=== PATIENT | female | born 1990 | race Caucasian/White ===

== ENCOUNTER 2018-02-22 19:50 | Inpatient (IN) | payer MEDICAID, OTHER ==
[2018-02-22 21:06] VITALS: BMI 25.4
[2018-02-22] MEDS ORDERED: Lactated Ringer's 1,000 ML IV SCH (21:30)
--- NOTE | 2018-02-22 21:35 | OBHP ---
Datetime: 02/22/2018 21:29 IP Adm Impression: Term, intrauterine IP Admit Plan: Admit to unit Admit Comment, IP Provider: 27 y/o @ 38 wks GA c/o ctx pain eery 5 min increasin intesnity and frequency, denies any LOF, vb, +FM. pt states was referred also by her PMD today becuase she had an U S today with grwoth of weight from 35% to 10% and was told IUGR Ante PNC uncomplicated as per pt OB: P0 BUTTON SEWER HAND: denies hx of abnomrla pap, fbroids, ovairan cyst, STI PMH: Denies PSH: Tonceillectomy FHX non contribuory MEDS :PNV NKDA SHX: negative etoh/tobac/drugs A/P 27 y/o @ 38 wks GA IOL for IUGR -admit to L+D -npo, ivf -admissin labos -cont toco and efm -pain mangment -iol as per pMD Pelvic Type - PN: Adequate Extremities - PN: Normal Abdomen - PN: Normal Back - PN: Normal Breast - PN: Normal Lungs - PN: Normal Heart - PN: Normal Thyroid - PN: Normal Neurologic - PN: Normal HEENT - PN: Normal General - PN: Normal Presentation-Admit: Vertex IP Fetus A Comments: 2 variable decerlreatin with spontnaous return t baseline at beginning of efm FHR - Baseline A Provider: 125 Membranes, Provider: Intact Contraction Comments Provider: q 3 min Gestation - Est Wks by US: 38.0 EGA AdmitDate IP: 38.0 Vital Signs Provider: Reviewed; Within Normal Limits IP Chief Complaint: Other NICHD Variability Prov Fetus A: Moderate 6-25bpm FHR Category Provider Fetus A: Category I Dilatation, Provider: 0 Effacement, Provider: 0 Station, Provider: -3 Genitourinary Exam: Normal DTRs - PN: Normal
[2018-02-22 22:12] LABS: BASO % 0.2 % (0.0-2.0); EOS # 0.3 K/uL (0.0-0.7); EOS % 2.4 % (0.0-4.0); HEMOGLOBIN 11.3 g/dL (11.0-16.0); LYMPH # 2.9 K/uL (1.0-4.3); LYMPH % 21.1 % (20.0-40.0); MEAN CELL VOLUME 76.4 fL (81.0-99.0); MEAN CORPUSCULAR HEMOGLOBIN 24.2 pg (27.0-31.0); MEAN CORPUSCULAR HGB CONC 31.6 g/dL (33.0-37.0); MEAN PLATELET VOLUME 10.2 fL (7.2-11.7); MONO # 1.2 K/uL (0.0-0.8); MONO % 8.7 % (0.0-10.0); NEUT # 9.3 K/uL (1.8-7.0); NEUT % 67.6 % (50.0-75.0); RBC 4.68 Mil/uL (3.80-5.20); WHITE BLOOD COUNT 13.8 K/uL (4.8-10.8)
[2018-02-22 22:24] LABS: SQUAMOUS EPITHIAL < 1 /hpf (0-5); URINE BACTERIA RARE (<OCC)
[2018-02-22 22:25] LABS: URINE BILIRUBIN NEGATIVE (NEGATIVE); URINE BLOOD NEGATIVE (NEGATIVE); URINE CLARITY Clear (Clear); URINE COLOR YELLOW (YELLOW); URINE GLUCOSE (UA) NEGATIVE (Normal); URINE LEUKOCYTE ESTERASE NEGATIVE Leu/uL (Negative); URINE PROTEIN NEGATIVE (NEGATIVE); URINE UROBILINOGEN Normal mg/dL (0.2-1.0)
[2018-02-22 22:27] LABS: ALB/GLOB RATIO 0.9 (1.0-2.1); ALBUMIN 3.6 g/dL (3.5-5.0); ALT/SGPT 17 U/L (9-52); AST/SGOT 21 U/L (14-36); BLOOD UREA NITROGEN 9 mg/dL (7-17); CALCIUM 9.2 mg/dl (8.6-10.4); GFR AFRICAN-AMERICAN > 60; GFR NON-AFRICAN AMERICAN > 60
[2018-02-23] MEDS ORDERED: Nalbuphine 20 mg/ml Inj (1 ml) IVP PRN (00:30)
[2018-02-23] MEDS ORDERED: Bupivacaine HCl/FentaNYL Cit 100 ML EPI ONE (12:00)
[2018-02-23] MEDS ORDERED: Bupivacaine HCl 0.25% PF (10 ml) Inj ONE (12:00)
--- NOTE | 2018-02-23 13:25 | OBPN ---
Datetime: 02/22/2018 21:29 IP Procedures Other: AROM@ 1:18pm. fluid clear IP Progress Impression: Normal progression of labor IP Procedures: Artificial ROM IP Progress Plan: Continue present management Membranes, Provider: Intact Contraction Comments Provider: q 3 min FHR - Baseline A Provider: 125 IP Fetus A Comments: 2 variable decerlreatin with spontnaous return t baseline at beginning of efm Gestation - Est Wks by US: 38.0 Presentation-Admit: Vertex Vital Signs Provider: Reviewed; Within Normal Limits FHR Category Provider Fetus A: Category II NICHD Variability Prov Fetus A: Moderate 6-25bpm Dilatation, Provider: 7 Effacement, Provider: 100 Station, Provider: 0 NICHD Decel Fetus A IP Provider: Variable
[2018-02-23] MEDS ORDERED: Oxytocin 30 UNIT 30 UNITS/500 ML BAG IV ONE (14:42)
[2018-02-23] MEDS ORDERED: Lidocaine 2% Inj (20ml) ONE (15:17)
[2018-02-23] MEDS ORDERED: Tdap Vaccine 0.5 ml Vial (10-64 yrs) IM ONE (16:03)
[2018-02-23] MEDS ORDERED: Oxytocin 30 UNIT 30 UNITS/500 ML BAG IV SCH (16:15)
--- NOTE | 2018-02-23 16:22 | OBDS ---
DELIVERY PERSONNEL Delivery Doctor: Conner Samaniego MD Office Assistant Receptionist: Kylie Sawyer RN Anesthesiologist: MATERNAL INFORMATION Delivery Anesthesia: Epidural Medications in Delivery: Lidocaine 2% locally, Pitocin 20 units in 1000ml LR Estimated Blood Loss (ml): 200 Placenta Cultured: Yes Maternal Complications: None RN Comments: Liveborn Baby Boy; 9-9 Provider Comments: Uncomplicated vaginal delivery. Apgars 9/9. Second degree laceration and episioto my were repaired in the usual fashion. Placenta delivered spontaneously. Excellent hemostasis was not ed. LABOR SUMMARY EDC: 03/08/2018 00:00 No. Babies in Womb: 1 Attempted: No Labor Anesthesia: Epidural LABOR INFORMATION Reason for Induction: Intrauterine Growth Retardation Cervical Ripening Agents: Cervidil (Annotations: 10mg inserted vaginally by ) Oxytocin: N/A Group B Beta Strep: Negative Antibiotics # of Doses: 0 Antibiotics Time of Last Dose: 0 Steroids Given: None Reason Steroids Not Administered: Not Applicable MEMBRANES Membranes Rupture Method: Artificial Rupture of Membranes: 02/23/2018 13:17 Length of Rupture (hrs): 2.18 Amniotic Fluid Color: Clear Amniotic Fluid Amount: Moderate Amniotic Fluid Odor: Normal STAGES OF LABOR Stage 3 hrs: 0 Stage 3 min: 2 VAGINAL DELIVERY Episiotomy: Left Mediolateral Laceration Extension: Second Degree Laceration Type: Perineal Laceration Repair: Yes Initial Vag Sponge Count: 20 Initial Vag Sharps Count: 3 Sponge Count Correct: Yes Sharps Count Correct: Yes BABY A INFORMATION Infant Delivery Date/Time: 02/23/2018 15:28 Method of Delivery: Vaginal Born in Route : No : N/A Forceps: N/A Vacuum Extraction: N/A Shoulder Dystocia : No SHOULDER DYSTOCIA BABY A Infant Delivery Date/Time: 02/23/2018 15:28 PRESENTATION/POSITION BABY A Presentation: Cephalic Cephalic Presentation: Vertex Vertex Position: Left Occipital Anterior Breech Presentation: N/A PLACENTA INFORMATION BABY A Placenta Delivery Time : 02/23/2018 15:30 Placenta Method of Delivery: Spontaneous Placenta Status: Delivered SCORES BABY A Heart Rate 1 min: >100 bpm Resp Effort 1 min: Good Cry Reflex Irritability 1 min: Cough or Sneeze or Pulls Away Muscle Tone 1 min: Active Motion Color 1 min: Body [place], Extremities Blue Resuscitation Effort 1 min: N/A SCORE 1 MIN: 9 Heart Rate 5 min: >100 bpm Resp Effort 5 min: Good Cry Reflex Irritability 5 min: Cough or Sneeze or Pulls Away Muscle Tone 5 min: Active Motion Color 5 min: Body [place], Extremities Blue Resuscitation Effort 5 min: N/A SCORE 5 MIN: 9 INFANT INFORMATION BABY A Gestational Age at Delivery: 38.1 Gestational Status: Term Infant Outcome : Liveborn Condition : Stable Infant Sex: Male IDENTIFICATION/MEDS BABY A ID Band Number: [id number] ID Band Location: Left Leg; Left Arm Sensor Applied: Yes Sensor Number: [id number] Sensor Location : Cord Clamp Vitamin K Given : Not Given Erythromycin Given: Not Given WEIGHT/LENGTH BABY A Birthweight (gms): 2995 Infant Weight (lb): 6 Infant Weight (oz): 10 Length Inches: 20.00 Infant Length cms: 50.8 CORD INFORMATION BABY A No. Cord Vessels: 3 Nuchal Cord : Around Neck x2, Loose Infant Cord pH Baby Venous: 7.27 Cord Blood Taken: Yes Suction: Mouth; Nose ASSESSMENT BABY A Infant Complications: None Physical Findings at Delivery: Within Normal Limits Respirations: Appears Normal Burn Out Scarfing Operator/ALS Called : Yes Care By: Dr.Oey bagley Transferred To: Nursery
--- NOTE | 2018-02-23 17:56 | OBPPN ---
Datetime: 02/23/2018 17:48 PP Pain Prov: Within normal limits PP Lochia Prov: Abnormal PP Impression Other Prov: Hemorrhage PP Plan Other Prov: Exam Under anesthesia PP Progress Note Prov: i was called to evaulate the patient d/t hemorrhage. The patient w as taken to the OR for exam under anesthesia. The bladder was drained of 500cc. The bimanual exam was performed and the fundus was noted to be firm below the umbiliucs. The weighted speculum was placed in the vagina and the right angle retractor was placed on the anterior vagina. The cervix was inspec nelsy with ring forceps. There were no cervical tears noted. The vaginal thorpe was inspected and there was noted to be a vaginal sulcal tear on the left vaginal wall. The tear was repaired with 2.0 vicryl . Hemostasis was achieved. The cervix, and vagina was re-inspected and there was no bleeding noted. A ll insturments were then removed from the vagina. The patient tolerated the procedure well.
[2018-02-23] MEDS ORDERED: Midazolam 2 MG/2 ML VIAL ONE (17:57)
[2018-02-23] MEDS ORDERED: Propofol 10 mg/ml Inj (20 ML) ONE (17:57)
[2018-02-24 07:39] LABS: BASO # 0.1 K/uL (0.0-0.2); BASO % 0.4 % (0.0-2.0); EOS # 0.1 K/uL (0.0-0.7); EOS % 0.5 % (0.0-4.0); HEMOGLOBIN 11.2 g/dL (11.0-16.0); LYMPH # 1.8 K/uL (1.0-4.3); LYMPH % 9.4 % (20.0-40.0); MEAN CELL VOLUME 76.4 fL (81.0-99.0); MEAN CORPUSCULAR HEMOGLOBIN 25.2 pg (27.0-31.0); MEAN CORPUSCULAR HGB CONC 32.9 g/dL (33.0-37.0); MEAN PLATELET VOLUME 9.8 fL (7.2-11.7); MONO # 1.8 K/uL (0.0-0.8); MONO % 9.1 % (0.0-10.0); NEUT # 15.7 K/uL (1.8-7.0); NEUT % 80.6 % (50.0-75.0); PLATELET COUNT 267 K/uL (130-400); RBC 4.46 Mil/uL (3.80-5.20); RED CELL DISTRIBUTION WIDTH 14.8 % (11.5-14.5); WHITE BLOOD COUNT 19.5 K/uL (4.8-10.8)
[2018-02-24 08:52] LABS: BANDS 4 % (0-2); LYMPHOCYTE 8 % (20-40); MONOCYTE 11 % (0-10); NEUTROPHIL 77 % (50-75); TOTAL CELLS COUNTED 100
[2018-02-24 08:53] LABS: PLATELET ESTIMATE NORMAL (NORMAL)
[2018-02-24 08:54] LABS: ANISOCYTOSIS SLIGHT; HYPOCHROMIC SLIGHT; POLYCHROMIC SLIGHT
[2018-02-24 08:55] LABS: GIANT PLATELETS PRESENT; LARGE PLATELETS PRESENT
[2018-02-24] MEDS: Multiple Vitamins Tab PO SCH (09:13)
--- NOTE | 2018-02-24 18:09 | CP.PCM.PN ---
Subjective - Date & Time of Evaluation Date of Evaluation: 02/24/18 Time of Evaluation: 18:06 - Subjective Subjective: Patient denies any acute complaints. She is ambulating, voiding, tolerating regular diet. Pain is well controlled. Breast and bottle feeding Objective - Vital Signs/Intake and Output Vital Signs (last 24 hours): Temp Pulse Resp BP Pulse Ox 98 F 113 H 18 108/73 98 02/24/18 16:53 02/24/18 16:53 02/24/18 16:53 02/24/18 16:53 02/24/18 16:53 - Medications Medications: Current Medications Acetaminophen (Tylenol 325mg Tab) 650 mg PO Q6 PRN PRN Reason: Pain, moderate (4-7) Docusate Sodium (Colace) 100 mg PO BID [facility] Last Admin: 02/24/18 17:06 Dose: 100 mg Ibuprofen (Motrin Tab) 600 mg PO Q6 PRN PRN Reason: Pain, Mild (1-3) Last Admin: 02/24/18 17:08 Dose: 600 mg Magnesium Hydroxide (Milk Of Magnesia) 30 ml PO ONCE ONE Stop: 02/24/18 22:01 Multivitamins (Hexavitamin) 1 tab PO DAILY [facility] Last Admin: 02/24/18 09:13 Dose: 1 tab Nalbuphine HCl (Nubain) 10 mg IVP DAILY@ONCE PRN PRN Reason: Pain, severe (8-10) - Labs Labs: 02/24/18 07:26 02/22/18 22:00 - Constitutional Appears: Well, No Acute Distress - Head Exam Head Exam: ATRAUMATIC - Eye Exam Eye Exam: Normal appearance - Respiratory Exam Respiratory Exam: NORMAL BREATHING PATTERN - GI/Abdominal Exam GI & Abdominal Exam: Soft - Rectal Exam Rectal Exam: NORMAL INSPECTION - Extremities Exam Extremities Exam: Normal Inspection - Neurological Exam Neurological Exam: Alert, Awake, Normal Gait, Oriented x3 - Psychiatric Exam Psychiatric exam: Normal Affect, Normal Mood - Skin Skin Exam: Normal Color Assessment and Plan - Assessment and Plan (Free Text) Assessment: s/p spontaneous vaginal delivery, vaginal laceration repair. Patient doing well. Plan: Anticipate discharge home tomorrow
[2018-02-24] MEDS ORDERED: Magnesium Hydroxide Susp 30 ml UD PO ONE (22:00)
[2018-02-25 08:06] VITALS: BP 119/82; PULSE 98; TEMP 99.1; O2SAT 100
[2018-02-25 08:33] LABS: BASO # 0.1 K/uL (0.0-0.2); BASO % 0.7 % (0.0-2.0); EOS # 0.3 K/uL (0.0-0.7); EOS % 2.1 % (0.0-4.0); HEMOGLOBIN 11.2 g/dL (11.0-16.0); LYMPH % 12.2 % (20.0-40.0); MEAN CELL VOLUME 76.7 fL (81.0-99.0); MEAN CORPUSCULAR HEMOGLOBIN 25.1 pg (27.0-31.0); MEAN CORPUSCULAR HGB CONC 32.7 g/dL (33.0-37.0); MEAN PLATELET VOLUME 9.6 fL (7.2-11.7); MONO # 0.8 K/uL (0.0-0.8); MONO % 4.7 % (0.0-10.0); NEUT # 13.2 K/uL (1.8-7.0); NEUT % 80.3 % (50.0-75.0); RBC 4.48 Mil/uL (3.80-5.20); RED CELL DISTRIBUTION WIDTH 15.2 % (11.5-14.5); WHITE BLOOD COUNT 16.4 K/uL (4.8-10.8)
[2018-02-25] MEDS: Multiple Vitamins Tab PO SCH (09:05)
[2018-02-25 17:25] VITALS: RESP 18
== END 2018-02-25 13:24 | disposition home or self-care (01) | DRG 774 ==
LOC: C.EROB 19:50 → UNDOADMIN 20:49 → C.4D 20:49 → C.4M 02-23 21:00
PROVIDERS: ADMIT Obstetrics & Gynecology; ATTEND Obstetrics & Gynecology
PROC: 0W8NXZZ Division of Female Perineum, External Approach (ICD-10-PCS; principal; 2018-02-23)
PROC: 10E0XZZ Delivery of Products of Conception, External Approach (ICD-10-PCS; 2018-02-23)
PROC: 0KQM0ZZ Repair Perineum Muscle, Open Approach (ICD-10-PCS; 2018-02-23)
DX: O69.81X0 Labor and delivery complicated by cord around neck, without compression, not applicable or unspecified (principal); O72.1 Other immediate postpartum hemorrhage; O70.1 Second degree perineal laceration during delivery; O36.5930 Maternal care for other known or suspected poor fetal growth, third trimester, not applicable or unspecified; Z3A.38 38 weeks gestation of pregnancy; Z37.0 Single live birth